=== PATIENT | male | born 2000 | race Caucasian/White ===

== ENCOUNTER 2020-02-04 14:43 | Emergency (ER) | payer OTHER ==
[2020-02-04] MEDS ORDERED: Lidocaine 2% 20 ml MDV ONE (15:28)
[2020-02-04] MEDS ORDERED: Bacitracin 1 PK ONE (15:59)
== END 2020-02-04 16:15 | disposition home or self-care (01) ==
LOC: MADERS 14:43
DX: S01.511A Laceration without foreign body of lip, initial encounter (principal); V98.8XXA Other specified transport accidents, initial encounter; Y93.I9 Activity, other involving external motion
CPT/HCPCS: 12011; 40650

== ENCOUNTER 2020-02-05 12:25 | Emergency (ER) | payer OTHER ==
[2020-02-05] MEDS ORDERED: Lidocaine 1% 20 ML MDV ONE (14:11)
== END 2020-02-05 14:40 | disposition home or self-care (01) ==
LOC: MADERS 12:25
DX: S61.210A Laceration without foreign body of right index finger without damage to nail, initial encounter (principal); Z79.899 Other long term (current) drug therapy; Z23 Encounter for immunization; E66.9 Obesity, unspecified; W26.9XXA Contact with unspecified sharp object(s), initial encounter
CPT/HCPCS: 12001